=== PATIENT | female | born 1955 | race Native Hawaiian/Other Pacific Islander ===

== ENCOUNTER 2016-11-13 14:45 | Outpatient (CLI) | payer BC, OTHER | END 2016-11-13 14:46 | disposition home or self-care (01) | LOC: LABHHL 14:45 | PROVIDERS: ATTEND Surgery | DX: N60.02 Solitary cyst of left breast (principal); I10 Essential (primary) hypertension; E11.9 Type 2 diabetes mellitus without complications | CPT/HCPCS: 88112 ==